=== PATIENT | male | born 1965 ===

== ENCOUNTER 2023-03-26 07:16 | Day surgery (SDC) | payer OTHER ==
[~2023-03-26] VITALS: Ht 180.3 cm; Wt 126.4 kg
[~2023-03-26 07:16] MED LIST: ALBU90OI INH; AZELASTINE137 MCG/06; BREZTRI AEROS10.7 GM INH; CYCL10 PO; HYDACE5 PO; IBUP600 PO; MONT10T PO
--- NOTE | 2023-03-26 10:21 | NUR ---
03/26/23 1021 Maged Ramos ROPIVACAINE 0.5% 20 MLS MIXED & VERIFIED W/ EPI 0.1 ML (1MG/ML), PER ORDER, TO MAKE ROPIVACAINE 0.5% 1:200,000 FOR INJECTION AT OPSITE BY DR BLAIR. 10 MLS ON FIELD.
--- NOTE | 2023-03-26 12:42 | NUR ---
03/26/23 7092 Ghazala Singleton PT STATED THAT HE WAS EXPERIENCING PAIN,TIGHTNESS, AND NUMBNESS IN OPERATIVE HAND. JAKOB AND CATHI DISCUSSED THIS CONCERN WITH THE PT AND CHECKED CAPILLARY REFILL, WHICH WAS NORMAL. TALKED TO PT ABOUT LOOSENING THE BABATUNDE WRAP IF IT STARTS TO FEEL TOO TIGHT AFTER THE NUMBING WEARS OFF.
[2023-03-26 12:45] VITALS: BP 154/95
== END 2023-03-26 13:00 | disposition home or self-care (01) ==
LOC: ORSCSDS 07:16
PROVIDERS: Orthopaedic Surgery
PROC: 0LB60ZZ Excision of Left Lower Arm and Wrist Tendon, Open Approach (ICD-10-PCS; principal; 2023-03-26 09:30)
PROC: 01N50ZZ Release Median Nerve, Open Approach (ICD-10-PCS; principal; 2023-03-26 09:30)
PROC: 0JBH0ZX Excision of Left Lower Arm Subcutaneous Tissue and Fascia, Open Approach, Diagnostic (ICD-10-PCS; principal; 2023-03-26 09:30)
DX: D17.22 Benign lipomatous neoplasm of skin and subcutaneous tissue of left arm (principal); M67.432 Ganglion, left wrist; G56.02 Carpal tunnel syndrome, left upper limb; G47.33 Obstructive sleep apnea (adult) (pediatric); J45.909 Unspecified asthma, uncomplicated; E66.9 Obesity, unspecified; Z68.38 Body mass index [BMI] 38.0-38.9, adult
CPT/HCPCS: 88304; 93005; 93010; A9270; J0171; J0690; J1100; J2250; J2405; J2704; J2795; J3010; J7120

== ENCOUNTER 2023-08-17 20:24 | Emergency (ER) | payer OTHER ==
[~2023-08-17] VITALS: Ht 180.3 cm; Wt 131.5 kg
[2023-08-17] MEDS ORDERED: Norco 7.5-3251 EACH PO (20:45)
[2023-08-17] MEDS ORDERED: Ondansetron HCl 2 MG / ML 2ML Vial IV ONE (21:10)
[2023-08-17] MEDS ORDERED: HYDROmorphone HCl/Pf 1MG SYR IV ONE (21:10)
[2023-08-17 21:30] VITALS: BP 149/90
[2023-08-17] MEDS ORDERED: Dexamethasone Sod Phos 10 MG/ML 1ML VIAL IV ONE (21:30)
[2023-08-17] MEDS ORDERED: METPRE4DP PO (21:46)
== END 2023-08-17 22:49 | disposition home or self-care (01) ==
LOC: ER 20:24
DX: M54.16 Radiculopathy, lumbar region (principal); Z88.8 Allergy status to other drugs, medicaments and biological substances; Z88.5 Allergy status to narcotic agent; J45.909 Unspecified asthma, uncomplicated
CPT/HCPCS: 96374; 96375; 99283-25; J1100; J1170; J2405